=== PATIENT | male | born 1990 ===

== ENCOUNTER 2019-02-09 04:45 | Emergency (ER) | payer SELFPAY ==
[2019-02-09 05:08] VITALS: BP 106/67; PULSE 67; RESP 16; TEMP 97.6; O2SAT 98
[2019-02-09] MEDS ORDERED: DiphenhydrAMINE 50 mg/ml Inj IVP STA (05:26)
[2019-02-09] MEDS ORDERED: Sodium Chloride 0.9% 1,000 ML IV STA (05:26)
[2019-02-09] MEDS ORDERED: Pantoprazole 40 MG in Sodium Chloride 0.9% 100 ML IVPB STA (05:31)
[2019-02-09] MEDS ORDERED: DiphenhydrAMINE 50 mg/ml Inj ONE (05:40)
--- NOTE | 2019-02-09 05:45 | ED PDOC ---
HPI: Abdomen Time Seen by Provider: 02/09/19 05:14 Chief Complaint (Nursing): Abdominal Pain Chief Complaint (Provider): Abdominal Pain History Per: Patient History/Exam Limitations: no limitations Onset/Duration Of Symptoms: Days (x 3-4), Waxing/Waning Current Symptoms Are (Timing): Still Present Location Of Pain/Discomfort: LUQ Quality Of Discomfort: "Pain" Associated Symptoms: Vomiting, Diarrhea Additional Complaint(s): 28 year old male with no medications presents to the Ed with LUQ abdominal pain for a few days. Patient reports the pain is waxing and waning, localized in the left upper quadrant and is associated with non-bloody, non-bloody vomiting and watery diarrhea. She states that this pain is intermittent. Patient has already been evaluated at [facility] and [facility] where she advised to follow up with a GI doctor. She is unable to follow up with GI doctor due to a problem with insurance. She was worked up at both facilities and found to have normal blood work and imaging. Patient now takes Omeprazole with no relief. PMD: none provided Past Medical History Reviewed: Historical Data Vital Signs: Last Vital Signs Temp 97.6 F 02/09/19 05:04 Pulse 67 02/09/19 05:04 Resp 16 02/09/19 05:04 BP 106/67 02/09/19 05:04 Pulse Ox 98 02/09/19 05:04 - Medical History PMH: No Chronic Diseases - Surgical History Surgical History: No Surg Hx - Family History Family History: States: Unknown Family Hx - Home Medications Home Medications: Ambulatory Orders Medication Instructions Recorded Dicyclomine [Bentyl] 20 mg PO QID PRN #20 tab 02/09/19 Ondansetron ODT [Zofran ODT] 1 odt PO Q6 PRN #20 odt 02/09/19 - Allergies Allergies/Adverse Reactions: Allergies Allergy/AdvReac Type Severity Reaction Status Date / Time No Known Allergies Allergy Verified 02/09/19 05:08 Review of Systems ROS Statement: Except As Marked, All Systems Reviewed And Found Negative Gastrointestinal: Positive for: Vomiting, Abdominal Pain, Diarrhea Physical Exam - Reviewed Nursing Documentation Reviewed: Yes Vital Signs Reviewed: Yes - Physical Exam Appears: Positive for: In Acute Distress (acute) Head Exam: Positive for: ATRAUMATIC, NORMOCEPHALIC Skin: Positive for: Warm, Dry Eye Exam: Positive for: EOMI, PERRL ENT: Negative for: Pharyngeal Erythema, Tonsillar Exudate Neck: Positive for: Painless ROM, Supple Cardiovascular/Chest: Positive for: Regular Rate, Rhythm. Negative for: Murmur Respiratory: Positive for: Normal Breath Sounds. Negative for: Respiratory Distress Gastrointestinal/Abdominal: Positive for: Soft, Tenderness (epigastric and LUQ tenderness to palpation; distractable tenderness). Negative for: Mass, Distended, Guarding, Rebound Back: Positive for: Normal Inspection. Negative for: Muscle Spasm Extremity: Positive for: Normal ROM. Negative for: Deformity Lymphatic: Negative for: Adenopathy Neurological/Psych: Positive for: Awake. Negative for: Motor/Sensory Deficits - Laboratory Results Result Diagrams: 02/09/19 05:49 02/09/19 05:49 - ECG O2 Sat by Pulse Oximetry: 98 (RA) Pulse Ox Interpretation: Normal Medical Decision Making Medical Decision Makin:26 Impression: abdominal pain Differential dxs include but are not limited to: gastritis, PUD, gastroenteritis, dehydration Initial Plan: --CMP --CBC --Lactic acid --Lipase --Urine dip --Benadryl 25 mg PO -_Dextrose 5 % IV 1,0000 ml --NS IV 1,000 mls --Protonix inj 40 mg IM --Reglan 10 mg IVP 0645 Labs unremarkable Pt feels much better. Stable for dc with followup. ------- Scribe Attestation: Documented by Rosa Bravo, acting as a scribe for Elise Perez MD Provider Scribe Attestation: All medical record entries made by the Scribe were at my direction and personall y dictated by me. I have reviewed the chart and agree that the record accurately reflects my personal performance of the history, physical exam, medical decision making, and the department course for this patient. I have also personally directed, reviewed, and agree with the discharge instructions and disposition Disposition - Clinical Impression Clinical Impression: Abdominal pain - Disposition [facility]errals: [facility] ([facility] EN [facility]-2 SHERIFF. NECESITA COMENZAR TRATIMIENTE A [facility] Y DESPUES PUEDA IR A LA SPECIALISTA DE GASTROENTEROLOGO) Disposition: Routine/Home Disposition Time: 06:45 Condition: IMPROVED Prescriptions: Dicyclomine [Bentyl] 20 mg PO QID PRN #20 tab PRN Reason: abdominal pain Ondansetron ODT [Zofran ODT] 1 odt PO Q6 PRN #20 odt PRN Reason: Nausea/Vomiting Instructions: Stomach Ache and Stomach Upset Forms: [facility] ED School/Work Excuse Print Language: INDONESIAN
[2019-02-09 05:56] LABS: BASO % 0.5 % (0.0-2.0); EOS # 0.1 K/uL (0.0-0.7); EOS % 1.3 % (0.0-4.0); HEMOGLOBIN 16.3 g/dL (12.0-18.0); LYMPH # 3.3 K/uL (1.0-4.3); LYMPH % 42.5 % (20.0-40.0); MEAN CELL VOLUME 90.6 fl (80.0-94.0); MEAN CORPUSCULAR HEMOGLOBIN 31.3 pg (27.0-31.0); MEAN CORPUSCULAR HGB CONC 34.6 g/dL (33.0-37.0); MEAN PLATELET VOLUME 7.8 fl (7.2-11.7); MONO # 0.6 K/uL (0.0-0.8); MONO % 8.2 % (0.0-10.0); NEUT # 3.7 K/uL (1.8-7.0); NEUT % 47.5 % (50.0-75.0); NRBC % 0.3 % (0.0-0.0); RBC 5.19 Mil/uL (4.40-5.90); RED CELL DISTRIBUTION WIDTH 12.9 % (11.5-14.5); WHITE BLOOD COUNT 7.8 K/uL (4.8-10.8)
[2019-02-09 06:01] LABS: ALB/GLOB RATIO 1.3 (1.0-2.1); ALBUMIN 4.3 g/dL (3.5-5.0); ALT/SGPT 43 U/L (21-72); AST/SGOT 21 U/L (17-59); BLOOD UREA NITROGEN 16 mg/dl (9-20); CALCIUM 9.3 mg/dL (8.4-10.2); GFR NON-AFRICAN AMERICAN > 60; LIPASE 71 U/L (23-300)
[2019-02-09] MEDS ORDERED: Iohexol 240 (50 ml) PO STA (06:12)
[2019-02-09] MEDS ORDERED: Alum-Mag Hydrox-Simethicone Susp (30 mL) PO STA (06:18)
== END 2019-02-09 07:10 | disposition home or self-care (01) ==
LOC: H.ER 04:45
DX: R10.12 Left upper quadrant pain (principal)
CPT/HCPCS: 80053; 83605; 83690; 85025; 96374; 99283; J1200; J2765; J7030